=== PATIENT | female | born 1995 ===

== ENCOUNTER 2022-10-13 12:21 | Inpatient (IN) | payer OTHER ==
[2022-10-13] MEDS ORDERED: Water For Irrigation,Sterile 1,000 ML Container IRR PRN (13:16)
[2022-10-13] MEDS ORDERED: Sodium Chloride 0.9% 10 ML Syringe FLUSH PRN (13:16)
[2022-10-13] MEDS ORDERED: Butorphanol 1 MG/ML SDV IVPUSH PRN (13:16)
[2022-10-13] MEDS ORDERED: Sodium Chloride 0.9% 2.5 ML Syringe FLUSH PRN (13:16)
[2022-10-13] MEDS ORDERED: Sodium Chloride 0.9% 20 ML SDV IV PRN (13:16)
[2022-10-13] MEDS ORDERED: Misoprostol 200 MCG Tab PO PRN (13:16)
[2022-10-13] MEDS ORDERED: Methylergonovine 0.2 MG/1 ML Amp IM PRN (13:16)
[2022-10-13] MEDS ORDERED: Tranexamic Acid 1,000 MG in Sodium Chloride 0.9% 100 ML IV PRN (13:16)
[2022-10-13] MEDS ORDERED: Terbutaline 1 MG/ML SDV SUBCUT PRN (13:16)
[2022-10-13] MEDS ORDERED: Lidocaine 1% 50 ML MDV INJECT PRN (13:16)
[2022-10-13] MEDS ORDERED: Carboprost Tromethamine 250 MCG/1 mL Vial IM PRN (13:16)
[2022-10-13] MEDS ORDERED: Oxytocin/0.9 % Sodium Chloride 30 UNIT/500 ML BAG IV SCH ×2 (13:30)
[2022-10-13 13:53] LABS: HEMATOCRIT 35.4 % (36.0-46.0); HEMOGLOBIN 11.9 g/dL (12.0-16.0); MEAN CORPUSCULAR HEMOGLOBIN 28.3 pg (27.0-32.0); MEAN CORPUSCULAR HGB CONC 33.6 g/dL (31.0-37.0); MEAN CORPUSCULAR VOLUME 84.3 fL (80.0-98.0); RED BLOOD CELL COUNT 4.2 M/uL (4.30-5.90); WHITE BLOOD CELL COUNT,WBC 15.18 K/uL (4.0-11.0)
[2022-10-13] MEDS: Lactated Ringers 1,000 ML IV SCH ×2 (13:57→16:15)
[2022-10-13] MEDS ORDERED: Ropivacaine/PF 400 MG/200 ML PCA ONE (15:19)
[2022-10-13] MEDS ORDERED: Dexmedetomidine 200 MCG/2 ML SDV ONE (15:19)
[2022-10-13] MEDS ORDERED: Phenylephrine HCl 0.5 MG/5 ML AMP IVPUSH PRN (16:10)
[2022-10-13] MEDS ORDERED: ePHEDrine 50 MG/ML SDV IVPUSH PRN ×2 (16:10)
[2022-10-13] MEDS ORDERED: Ropivacaine HCl/PF 400 MG in Premix Bag 1 BAG EPIDUR SCH (16:15)
[2022-10-13] MEDS ORDERED: Acetaminophen 500 MG Tab PO PRN (20:20)
[2022-10-13] MEDS ORDERED: Ondansetron 4 MG/2 ML SDV IVPUSH PRN (20:20)
[2022-10-14] MEDS ORDERED: Benzocaine/Menthol 20%-0.5% Spray 78 GM Cannister TOP PRN (00:19)
[2022-10-14] MEDS ORDERED: Ibuprofen 400 MG Tab PO PRN (00:19)
[2022-10-14] MEDS ORDERED: oxyCODONE 5 MG Tab PO PRN (00:19)
[2022-10-14] MEDS ORDERED: Witch Hazel Medicated Pads 40/Jar TOP PRN (00:19)
[2022-10-14] MEDS ORDERED: Docusate Sodium 100 MG Cap PO PRN (00:19)
[2022-10-14] MEDS ORDERED: Lanolin 100% Cream 7 GM Tube TOP PRN (00:19)
[2022-10-14] MEDS ORDERED: Bisacodyl 10 MG Supp RECTAL PRN (00:19)
[2022-10-14] MEDS ORDERED: Acetaminophen 500 MG Tab PO PRN (00:19)
[2022-10-14 00:36] LABS: PH,UMBILICAL ARTERIAL 7.167 (7.18-7.38); PH,UMBILICAL VENOUS 7.248 (7.25-7.45)
[2022-10-14] MEDS: Ibuprofen 800 MG Tab PO PRN ×3 (02:22→18:26)
[2022-10-14] MEDS: Acetaminophen 500 MG Tab PO PRN ×3 (02:24→15:09)
[2022-10-15] MEDS: Ibuprofen 800 MG Tab PO PRN ×2 (02:42→11:05)
[2022-10-15 05:44] LABS: HEMATOCRIT 33.1 % (36.0-46.0); HEMOGLOBIN 10.6 g/dL (12.0-16.0)
== END 2022-10-15 13:13 | disposition home or self-care (01) | DRG 807 ==
LOC: MW.OBCHECK 12:21 → MW.OB 12:22 → MW.OBCHECK 13:23 → MW.OB 13:24 → OBSVTOIN 23:48 → MW.OB 10-14 04:09
PROVIDERS: ADMIT Obstetrics & Gynecology; ATTEND Obstetrics & Gynecology
PROC: 10E0XZZ Delivery of Products of Conception, External Approach (ICD-10-PCS; principal; 2022-10-13)
PROC: 3E0R3BZ Introduction of Anesthetic Agent into Spinal Canal, Percutaneous Approach (ICD-10-PCS; 2022-10-13)
PROC: 00HU33Z Insertion of Infusion Device into Spinal Canal, Percutaneous Approach (ICD-10-PCS; 2022-10-13)
PROC: 10907ZC Drainage of Amniotic Fluid, Therapeutic from Products of Conception, Via Natural or Artificial Opening (ICD-10-PCS; 2022-10-13)
DX: O99.52 Diseases of the respiratory system complicating childbirth (principal); Z37.0 Single live birth; O99.344 Other mental disorders complicating childbirth; F32.A Depression, unspecified; O77.0 Labor and delivery complicated by meconium in amniotic fluid; J45.909 Unspecified asthma, uncomplicated; Z3A.39 39 weeks gestation of pregnancy; Z88.1 Allergy status to other antibiotic agents; Z90.49 Acquired absence of other specified parts of digestive tract; Z79.899 Other long term (current) drug therapy
CPT/HCPCS: 01967; 36415; 51702; 59025; 59409; 82803; 82947; 85014; 85018; 85027; 86592; 86850; 86900; 86901; A9270-GY; J2405; J2590; J2795; J3490; J7120